=== PATIENT | female | born 1990 | race American Indian/Alaskan Native ===

== ENCOUNTER 2019-12-30 17:09 | Emergency (ER) | payer MEDICAID ==
[2019-12-30] MEDS ORDERED: MORPHINE 4 MG/1 ML INJ IV ONE ×2 (17:22→21:47)
[2019-12-30] MEDS ORDERED: ONDANSETRON 4 MG/2 ML INJ IV ONE (17:22)
[2019-12-30] MEDS ORDERED: SODIUM CHLORIDE 0.9% 500 ML 500 ML IV ONE (17:22)
--- NOTE | 2019-12-30 17:26 | Emergency Department Report ---
ED Female HPI - General Stated complaint: MISCARRIAGE Time Seen by Provider: 12/30/19 17:13 Source: patient, EMS Mode of arrival: Stretcher Limitations: No Limitations - History of Present Illness Initial comments: 29-year-old female with no significant past medical history presents to the hospital complaining of a miscarriage with heavy vaginal bleeding. This is patient's second and she has 1 living child. On December 20 at approximately 6 weeks gestation patient had ultrasound that showed an absence of a heartbeat. On December 20 patient was prescribed Cytotec. Patient took the medication orally for several days and had intermittent bleeding. Yesterday patient followed back up with the OFFICE TECHNOLOGIST and had her Cytotec dose increased to 200 mcg 2 tablets every 4 hours x12 tabs. Patient started this higher dose yesterday. Since 1 PM today patient developed heavy vaginal bleeding with good "gushing out" and using 4 pads per hour. Patient complained of mild lightheadedness in route to the hospital that has since resolved. She denies syncope or shortness of breath. Complains of 7/10 superpubic intermittent cramping pain. She was also prescribed ibuprofen 600 mg 4 times daily and Percocet 5/325 every 6 hours. Her OFFICE TECHNOLOGIST doctors are affiliated with [facility] does not report hypotension or tachycardia in route. No IV fluids provided prior to arrival - Related Data Allergies Allergy/AdvReac Type Severity Reaction Status Date / Time No Known Allergies Allergy Unverified 12/30/19 17:23 ED Review of Systems ROS: Stated complaint: MISCARRIAGE Other details as noted in HPI Comment: All other systems reviewed and negative ED Physical Exam - Other Other exam information: General: No acute distress Head: Atraumatic Eyes: normal appearance ENT: Moist mucous membranes Neck: Normal appearance, no midline tenderness Chest: Clear to auscultation bilaterally CV: Regular rate and rhythm Abdomen: Soft, normal bowel sounds, suprapubic tenderness , nondistended, no rebound or guarding : Patient had a lot of blood and clots in the vault which were cleared out using forceps and gauze pads. Once clot with cleanout patient did not have any active clots or tissue coming from the cervical os. Patient had mild blood oozing from the os without significant bleeding. Back: Normal inspection Extremity: Normal inspection, full range of motion Neuro: Alert O x 3, no facial asymmetry, speech clear, no gross motor sensory deficit Psych: Appropriate behavior Skin: No rash ED Course Vital Signs 12/30/19 12/30/19 12/30/19 17:22 18:15 19:00 Temperature 97.8 F Pulse Rate 90 93 H 85 Respiratory 18 16 21 Rate Blood Pressure 121/66 134/77 Blood Pressure 130/68 [Left] O2 Sat by Pulse 100 97 100 Oximetry 12/30/19 12/30/19 12/30/19 19:15 19:30 19:45 Temperature Pulse Rate 88 91 H Respiratory 24 15 Rate Blood Pressure 125/77 131/81 131/81 Blood Pressure [Left] O2 Sat by Pulse 100 100 99 Oximetry 12/30/19 12/30/19 12/30/19 20:21 20:30 20:45 Temperature Pulse Rate 104 H 87 91 H Respiratory 14 13 Rate Blood Pressure 144/71 129/82 129/82 Blood Pressure [Left] O2 Sat by Pulse 99 98 100 Oximetry 12/30/19 12/30/19 12/30/19 21:01 21:15 21:30 Temperature Pulse Rate Respiratory Rate Blood Pressure 109/56 109/56 130/88 Blood Pressure [Left] O2 Sat by Pulse 100 100 98 Oximetry 12/30/19 12/30/19 21:45 22:10 Temperature Pulse Rate Respiratory 18 Rate Blood Pressure 130/88 Blood Pressure [Left] O2 Sat by Pulse 100 Oximetry - Reevaluation(s) Reevaluation #1: 12/30/19 22:56 Patient vital signs remained stable with no complaints of lightheadedness. Patient complains of continued heavy bleeding during ED stay. Pelvic exam was performed with clearance of clots of blood from os patient will be observed to determine if bleeding has improved 12/31/19 00:26 After vaginal cleanout patient does still have some bleeding but it is not as heavy as it was this afternoon. Initial hemoglobin 10. patient continues to not have hypotensive with tachycardia. Patient will be discharged to follow-up with her OB doctors in the morning. She will be provided a copy of all her results to take for follow-up - Consultations Consultation #1: 12/30/19 22:[address] Jorge. Pelvic exam performed as requested. Patient will be monitored an hour longer to determine if bleeding has indeed improved since vaginal vault has been cleared out. ED Medical Decision Making - Lab Data Result diagrams: 12/30/19 17:52 12/30/19 17:52 Lab Results 12/30/19 12/30/19 12/30/19 Range/Units 17:52 17:52 17:52 WBC 7.7 (4.5-11.0) K/mm3 RBC 3.72 (3.65-5.03) M/mm3 Hgb 10.4 (10.1-14.3) gm/dl Hct 30.9 (30.3-42.9) % MCV 83 (79-97) fl MCH 28 (28-32) pg MCHC 34 (30-34) % RDW 14.3 (13.2-15.2) % Plt Count 256 (140-440) K/mm3 Lymph % (Auto) 24.3 (13.4-35.0) % [place] % (Auto) 6.5 (0.0-7.3) % Eos % (Auto) 1.2 (0.0-4.3) % Baso % (Auto) 0.5 (0.0-1.8) % Lymph # (Auto) 1.9 (1.2-5.4) K/mm3 [place] # (Auto) 0.5 (0.0-0.8) K/mm3 Eos # (Auto) 0.1 (0.0-0.4) K/mm3 Baso # (Auto) 0.0 (0.0-0.1) K/mm3 Seg Neutrophils % 67.5 (40.0-70.0) % Seg Neutrophils # 5.2 (1.8-7.7) K/mm3 Sodium 136 L (137-145) mmol/L Potassium 3.7 (3.6-5.0) mmol/L Chloride 101.2 (98-107) mmol/L Carbon Dioxide 24 (22-30) mmol/L Anion Gap 15 mmol/L BUN 9 (7-17) mg/dL Creatinine 0.5 L (0.6-1.2) mg/dL Estimated GFR > 60 ml/min BUN/Creatinine Ratio 18 % Glucose 107 H (65-100) mg/dL Calcium 8.6 (8.4-10.2) mg/dL HCG, Quant 1968 H (0-4) mIU/mL Blood Type Antibody Screen 10/15/20 Range/Units 17:58 WBC (4.5-11.0) K/mm3 RBC (3.65-5.03) M/mm3 Hgb (10.1-14.3) gm/dl Hct (30.3-42.9) % MCV (79-97) fl MCH (28-32) pg MCHC (30-34) % RDW (13.2-15.2) % Plt Count (140-440) K/mm3 Lymph % (Auto) (13.4-35.0) % [place] % (Auto) (0.0-7.3) % Eos % (Auto) (0.0-4.3) % Baso % (Auto) (0.0-1.8) % Lymph # (Auto) (1.2-5.4) K/mm3 [place] # (Auto) (0.0-0.8) K/mm3 Eos # (Auto) (0.0-0.4) K/mm3 Baso # (Auto) (0.0-0.1) K/mm3 Seg Neutrophils % (40.0-70.0) % Seg Neutrophils # (1.8-7.7) K/mm3 Sodium (137-145) mmol/L Potassium (3.6-5.0) mmol/L Chloride (98-107) mmol/L Carbon Dioxide (22-30) mmol/L Anion Gap mmol/L BUN (7-17) mg/dL Creatinine (0.6-1.2) mg/dL Estimated GFR ml/min BUN/Creatinine Ratio % Glucose (65-100) mg/dL Calcium (8.4-10.2) mg/dL HCG, Quant (0-4) mIU/mL Blood Type O POSITIVE Antibody Screen Negative - Radiology Data Radiology results: report reviewed US OB <= 14 weeks fetus, US OB transvaginal INDICATION / CLINICAL INFORMATION: heavy vaginal bleedng, miscarriage. TECHNIQUE: Transabdominal and Transvaginal. COMPARISON: None available. FINDINGS: UTERUS: Appears within normal limits. GESTATIONAL SAC: Present. EMBRYO/FETUS: - [place]-Rump Length = 0.69 cm = 6 weeks 4 days. - Heart Rate, beats per minute (if present): no heart tones are present ADNEXA: No significant abnormality. FREE FLUID: None. ADDITIONAL FINDINGS: None. IMPRESSION: 1. There is a pole measuring 0.69 cm on transvaginal scan without heart tones. Findings suggest failure. Follow-up with beta-hCG and repeat sonograms as clinically indicated. - Medical Decision Making Patient will be discharged home after prolonged period ED stay with continued but diminished volume of vaginal bleeding. No signs of cardia pulmonary instability or anemia requiring blood transfusion. Patient is currently taking iron pills. Patient has pain medication at home and was treated with IV morphine and Zofran in ED. Case discussed with PHARMACOEPIDEMIOLOGIST doctor on-call who suggested outpatient follow-up with her OB in the morning. Patient provided a copy of her ultrasound report and fasting today to take to her follow-up visit. Advised not to take any additional Cytotec until calling her doctors for further advice. Patient is already told her OB doctor that she is not interested in having D&C for surgery. Critical Care Time: No Critical care attestation.: If time is entered above; I have spent that time in minutes in the direct care of this critically ill patient, excluding procedure time. ED Disposition Clinical Impression: Incomplete miscarriage, Episode of heavy vaginal bleeding Disposition: DC-01 TO HOME OR SELFCARE Is pt being admited?: No Does the pt Need Aspirin: No Condition: Stable Instructions: Spontaneous Miscarriage (ED), Misoprostol (By mouth) Additional Instructions: Take the medication as prescribed. Follow-up with your OB doctor in the morning and ask for advice regarding continuation of your Cytotec and reassessment of your symptoms. Return if symptoms worsen as indicated by your discharge instructions. Referrals: MARIANA LUNA DO [Other] - 12/31/19 (follow up with your ob doctor in the morning) Time of Disposition: 00:34
[2019-12-30 18:05] LABS: Basophils % (Auto) 0.5 % (0.0-1.8); Eosinophils # (Auto) 0.1 K/mm3 (0.0-0.4); Eosinophils % (Auto) 1.2 % (0.0-4.3); Hematocrit 30.9 % (30.3-42.9); Hemoglobin 10.4 gm/dl (10.1-14.3); Lymphocytes # (Auto) 1.9 K/mm3 (1.2-5.4); Lymphocytes % (Auto) 24.3 % (13.4-35.0); Mean Corpuscular HGB Conc 34 % (30-34); Mean Corpuscular Volume 83 fl (79-97); Monocytes # (Auto) 0.5 K/mm3 (0.0-0.8); Monocytes % (Auto) 6.5 % (0.0-7.3); Platelet Count 256 K/mm3 (140-440); Red Blood Count 3.72 M/mm3 (3.65-5.03); Red Cell Distribution Width 14.3 % (13.2-15.2)
[2019-12-30 18:21] LABS: Blood Urea Nitrogen 9 mg/dL (7-17); Calcium 8.6 mg/dL (8.4-10.2); Hemolysis Index 7
[2019-12-30 18:29] LABS: BUN/Creatinine Ratio 18
--- NOTE | 2019-12-30 20:14 | Ultrasound Report ---
US OB <= 14 weeks fetus, US OB transvaginal INDICATION / CLINICAL INFORMATION: heavy vaginal bleedng, miscarriage. TECHNIQUE: Transabdominal and Transvaginal. COMPARISON: None available. FINDINGS: UTERUS: Appears within normal limits. GESTATIONAL SAC: Present. EMBRYO/FETUS: - [place]-Rump Length = 0.69 cm = 6 weeks 4 days. - Heart Rate, beats per minute (if present): no heart tones are present ADNEXA: No significant abnormality. FREE FLUID: None. ADDITIONAL FINDINGS: None. IMPRESSION: 1. There is a pole measuring 0.69 cm on transvaginal scan without heart tones. Findings s uggest failure. Follow-up with beta-hCG and repeat sonograms as clinically indicated. Signer Name: Se Guzman MD Signed: 12/30/2019 8:10 PM Workstation Name: [id number]
--- NOTE | 2019-12-30 20:14 | Ultrasound Report ---
US OB <= 14 weeks fetus, US OB transvaginal INDICATION / CLINICAL INFORMATION: heavy vaginal bleedng, miscarriage. TECHNIQUE: Transabdominal and Transvaginal. COMPARISON: None available. FINDINGS: UTERUS: Appears within normal limits. GESTATIONAL SAC: Present. EMBRYO/FETUS: - [place]-Rump Length = 0.69 cm = 6 weeks 4 days. - Heart Rate, beats per minute (if present): no heart tones are present ADNEXA: No significant abnormality. FREE FLUID: None. ADDITIONAL FINDINGS: None. IMPRESSION: 1. There is a pole measuring 0.69 cm on transvaginal scan without heart tones. Findings s uggest failure. Follow-up with beta-hCG and repeat sonograms as clinically indicated. Signer Name: Se Guzman MD Signed: 12/30/2019 8:10 PM Workstation Name: [id number]
[2019-12-31 00:28] VITALS: BP 110/52
== END 2019-12-31 01:00 | disposition home or self-care (01) ==
LOC: ED 17:09
DX: O03.4 Incomplete spontaneous abortion without complication (principal); Z3A.01 Less than 8 weeks gestation of pregnancy
CPT/HCPCS: 36415; 76801; 76817; 80048; 84702; 85025; 86850; 86900; 86901; 96361; 96374; 96375; 96376; 99284; J2270; J2405; J7040